=== PATIENT | female | born 1970 ===

== ENCOUNTER 2018-07-23 13:39 | Emergency (ER) | payer MEDICAID ==
[2018-07-23 14:14] VITALS: O2SAT 100
--- NOTE | 2018-07-23 15:41 | C.PDOC ---
History Of Present Illness 48 year old female, with no significant PMHx, presents to the ED for evaluation of vaginal bleeding with clots which began 10 days ago. Patient denies experiencing similar symptoms in the past and notes menstrual cycle is usually regular. Patient states her PMD is on vacation and presents to the ED for further evaluation. She denies palpitations, headache, shortness of breath, abdominal pain, dizziness or weakness. Patient's past surgical history includes tubal ligation. PMD: Dr. Blackwood Time Seen by Provider: 07/23/18 15:18 Chief Complaint (Nursing): Female Genitourinary History Per: Patient History/Exam Limitations: no limitations Onset/Duration Of Symptoms: Days (10) Current Symptoms Are (Timing): Still Present Quality Of Discomfort: denies: "Pain" Additional History Per: Patient Abnormal Vaginal Bleeding: Yes Past Medical History Reviewed: Historical Data, Nursing Documentation, Vital Signs Vital Signs: Last Vital Signs Temp 99.0 F 07/23/18 14:10 Pulse 95 H 07/23/18 14:10 Resp 18 07/23/18 14:10 BP 117/80 07/23/18 14:10 Pulse Ox 100 07/23/18 14:10 - Medical History PMH: No Chronic Diseases Other Surgeries: tubal ligation Family History: States: Unknown Family Hx - Social History Hx Alcohol Use: No Hx Substance Use: No - Immunization History Hx Tetanus Toxoid Vaccination: No Hx Influenza Vaccination: No Hx Pneumococcal Vaccination: No Review Of Systems Constitutional: Negative for: Weakness Cardiovascular: Negative for: Palpitations Respiratory: Negative for: Shortness of Breath Gastrointestinal: Negative for: Abdominal Pain Genitourinary: Positive for: Vaginal Bleeding Neurological: Negative for: Headache, Dizziness Physical Exam - Physical Exam Appears: Non-toxic, No Acute Distress Skin: Normal Color, Warm, Dry, No Pale Head: Atraumatic, Normacephalic Eye(s): bilateral: Normal Inspection Oral Mucosa: Moist Neck: Supple Chest: Symmetrical, No Deformity, No Tenderness Cardiovascular: Rhythm Regular, No Murmur Respiratory: Normal Breath Sounds, No Rales, No Rhonchi, No Wheezing Gastrointestinal/Abdominal: Soft, No Tenderness, No Guarding, No Rebound Extremity: Normal ROM Neurological/Psych: Oriented x3, Normal Speech, Normal Cognition ED Course And Treatment - Laboratory Results Result Diagrams: 07/23/18 15:50 O2 Sat by Pulse Oximetry: 100 (on RA) Pulse Ox Interpretation: Normal Medical Decision Making Medical Decision Making: Impression: 48 year old female with vaginal bleeding x 10 days Plan: * bloodwork * urinalysis * reassess and disposition Progress: Bloodwork and urinalysis ordered and reviewed. Patient does not show any signs of anemia. Patient will be educated on perimenopausal symptoms. Disposition - Disposition Disposition: HOME/ ROUTINE Disposition Time: 16:08 Condition: STABLE Additional Instructions: Siga con villagomez gynecologa. Instructions: Perimenopause Forms: Gen Discharge Inst [facility], [facility] (Tristanian) - POA Present On Arrival: None - Clinical Impression Clinical Impression: Kari-menopausal, Dysfunctional uterine bleeding - Scribe Statement The provider has reviewed the documentation as recorded by the Scribe (Stephanie Plummer) Provider Attestation: All medical record entries made by the Scribe were at my direction and personally dictated by me. I have reviewed the chart and agree that the record accurately reflects my personal performance of the history, physical exam, medical decision making, and the department course for this patient. I have also personally directed, reviewed, and agree with the discharge instructions and disposition.
[2018-07-23 15:54] LABS: MEAN CELL VOLUME 91.7 fL (81.0-99.0); MEAN CORPUSCULAR HEMOGLOBIN 31.7 pg (27.0-31.0); MEAN CORPUSCULAR HGB CONC 34.6 g/dL (33.0-37.0); MEAN PLATELET VOLUME 10.2 fL (7.2-11.7); RBC 4.41 Mil/uL (3.80-5.20); RED CELL DISTRIBUTION WIDTH 13.3 % (11.5-14.5); WHITE BLOOD COUNT 5.6 K/uL (4.8-10.8)
[2018-07-23 16:44] VITALS: BP 130/88; PULSE 70; RESP 16; TEMP 98.2
[2018-07-23 16:54] LABS: URINE BILIRUBIN NEGATIVE (NEGATIVE); URINE BLOOD 3+ (NEGATIVE); URINE CLARITY Turbid (Clear); URINE COLOR Red (YELLOW); URINE GLUCOSE (UA) 1+ mg/dL (Normal); URINE LEUKOCYTE ESTERASE NEG Leu/uL (Negative); URINE PROTEIN 2+ mg/dL (NEGATIVE); URINE UROBILINOGEN NORMAL mg/dL (0.2-1.0)
[2018-07-23 16:58] LABS: HCG,QUALITATIVE URINE NEGATIVE (NEGATIVE)
== END 2018-07-23 16:45 | disposition home or self-care (01) ==
LOC: C.ER 13:39
DX: N93.8 Other specified abnormal uterine and vaginal bleeding (principal)

== ENCOUNTER 2018-12-22 07:13 | Outpatient (CLI) | payer MEDICAID | END 2018-12-22 07:14 | disposition home or self-care (01) | LOC: C.MAMMO 07:14 ==